=== PATIENT | female | born 1945 | race African-American/Black ===

== ENCOUNTER → 2018-07-22 | Outpatient (CLI) | payer MEDICARE ==
[~2018-07-22] MED LIST: LISI2.5T PO
--- NOTE | 2018-07-22 15:32 | KCIC ---
KUB without comparison for calculus of the ureter. FINDINGS: A double-J ureteral stent is seen, though the distal portion of the stent and the urinary bladder are not included on this film. Several calculi are seen overlying the inferior portion of the left kidney. Bowel gas pattern is nonobstructive and nonspecific. Degenerative changes of the spine are seen. IMPRESSION: 1. Left renal calculi. 2. Double-J ureteral stent, the distal portion of which in the urinary bladder is not included on the film. Electronically signed by: Toby Wetzel MD (07/22/2018 3:27 PM) [id number]
== END | disposition home or self-care (01) ==
LOC: KCIC 08:41
PROVIDERS: ATTEND Urology
DX: N20.1 Calculus of ureter (principal)
CPT/HCPCS: 74018

== ENCOUNTER → 2019-04-27 | Outpatient (CLI) | payer MEDICARE ==
--- NOTE | 2019-04-27 13:34 | KCIC ---
MRI Brain without contrast History:Headache, family history of stroke and aneurysm, hypertension, history of sepsis Technique: Multiplanar, multisequential noncontrast MR imaging was performed of the brain. Comparison: None Findings: There is mild motion. There is no evidence of recent infarct or cytotoxic edema. The ventricles, sulci, and cisterns are within normal limits in size and configuration. There is no significant midline shift, intraaxial mass effect, or focal abnormal extra-axial fluid collection. There is scattered multifocal overall mild T2 and FLAIR hyperintense signal abnormality of the supratentorial parenchyma bilaterally, somewhat more confluent signal change near left frontal horn and adjacent anterior left basal ganglia. There is also small focus of T2 and FLAIR hyperintense signal of the more central katherine. There is no significant hemosiderin deposition of the brain parenchyma. There is preservation of the major intracranial flow-voids at the skull base. The mastoid air cells are aerated. The cerebellar tonsils are normal in location. There is no significant abnormality of the pineal gland or pituitary gland. There is mild right maxillary sinus mucosal thickening, patchy minimal ethmoid air cell mucosal thickening. There is [id number] right sphenoid sinus mucosal thickening. There is preserved marrow signal of the clivus. Impression: 1. There is no evidence of recent infarct or intracranial mass effect. Scattered nonspecific T2 and FLAIR hyperintense signal of the supratentorial parenchyma bilaterally greatest near the left frontal horn and left basal ganglia is nonspecific although more commonly due to chronic microvascular ischemic disease in a patient this age. 2. There is paranasal sinus mucosal thickening as stated most notable of small right sphenoid sinus. MRA Brain History:Headache, family history of stroke and aneurysm, hypertension, history of sepsis Technique: 3-D [id number] MR angiography was performed of the brain. Comparison: None Findings: Determination of any degree of stenosis is based on NASCET criteria. There is some motion degradation. Both vertebral arteries constitute basilar artery. There is visualization segments of bilateral picas although on the right probably supplied by the left. There is visualization segments bilateral AICAs. The there is patent right posterior communicating artery, not seen on the left. There is tortuosity of basilar artery. There is tiny anterior communicating artery. There is some wall irregularity of the proximal A2 segments bilaterally. No significant intracranial stenosis or aneurysm is identified. Impression: 1. No significant intracranial stenosis or aneurysm is identified. Wall irregularity of the proximal A2 segments may be due to intracranial atherosclerotic disease. Basilar artery is tortuous. Electronically signed by: Dread Coto MD (04/27/2019 1:32 PM) [id number]
== END | disposition home or self-care (01) ==
LOC: KCIC MRI 07:48
PROVIDERS: ATTEND Internal Medicine
DX: J34.89 Other specified disorders of nose and nasal sinuses (principal); I77.1 Stricture of artery; I10 Essential (primary) hypertension; Z82.3 Family history of stroke; Z86.19 Personal history of other infectious and parasitic diseases
CPT/HCPCS: 70544; 70551